=== PATIENT | female | born 1985 | race Caucasian/White ===

== ENCOUNTER 2018-11-05 08:40 | Inpatient (IN) | payer OTHER ==
[2018-11-05 09:34] VITALS: BMI 21.6
--- NOTE | 2018-11-05 10:21 | HP ---
COWS - Scale Resting Pulse: 0= [place] 80 or Below Sweatin= Chills/Flushing Restless Observation: 1= Difficult to Sit Still Pupil Size: 1= Pupils >than Normal Bone or Joint Aches: 2= Severe Diffuse Aches Runny Nose/ Eye Tearin= Runny Nose/Eyes GI Upset > 30mins: 2= Nausea/Diarrhea Tremor Observation: 2= Slight Tremor Visible Yawning Observation: 1= 1-2x During Session Anxiety or Irritability: 2=Irritable/Anxious Goose Flesh Skin: 0=Smooth Skin COWS Score: 14 CIWA Score - Admission Criteria OASAS Guidelines: Admission for Medically Managed Detox: Requires at least one of the followin. CIWA greater than 12 2. Seizures within the past 24 hours 3. Delirium tremens within the past 24 hours 4. Hallucinations within the past 24 hours 5. Acute intervention needed for co occurring medical disorder 6. Acute intervention needed for co occurring psychiatric disorder 7. Severe withdrawal that cannot be handled at a lower level of care (continued vomiting, continued diarrhea, abnormal vital signs) requiring intravenous medication and/or fluids 8. Admission ROS [facility] Chief Complaint: i need help to stop using heroin cocaine and marijuana,stated no methadone program ,left program 2 months 2 moths ago also on prescribed clonazepam and adreral form I stop Allergies/Adverse Reactions: Allergies Allergy/AdvReac Type Severity Reaction Status Date / Time No Known Allergies Allergy Verified 11/05/18 09:26 History of Present Illness: this 33 years old female with heroin,cocaine and marijuana dependence,i stop patient is on clonazepam i mg po tid last filled 10/30/18 for 30 days 90 tablets,addrerall 20 mgs po daily,ambien 10 mg 30 , stated loss medication multiple admissions in detox last detox 05/02 did not recall facility history of hypertension,no medication hepatitis c under the care of medical provider in the [place] weight loss nicotine dependence 5 cigarette /day,would like nicotine gum longest sobriety 6 months bipoloar disorder,ptsd,anxiety,adhd plan for rehab after detox Exam Limitations: No Limitations - Ebola screening Have you traveled outside of the country in the last 21 days: No Have you had contact with anyone from an Ebola affected area: No Do you have a fever: No - Review of Systems Constitutional: Chills, Loss of Appetite, Malaise, Night Sweats, Changes in sleep, Weakness, Unintentional Wgt. Loss EENT: reports: Tearing, Nose Congestion Respiratory: reports: No Symptoms reported Cardiac: reports: No Symptoms Reported GI: reports: Diarrhea, Nausea, Poor Appetite, Abdominal cramping : reports: No Symptoms Reported Musculoskeletal: reports: Back Pain, Joint Pain, Muscle Pain, Joint Stiffness Integumentary: reports: Dryness Neuro: reports: Headache, Tremors Endocrine: reports: No Symptoms Reported Hematology: reports: No Symptoms Reported Psychiatric: reports: No Sypmtoms Reported, Judgement Intact, Mood/Affect Appropiate, Orientated x3, other (bipolar disorder,ptsd,adhd,insomnia) Other Systems: Reviewed and Negative Patient History - Patient Medical History Hx Anemia: No Hx Asthma: No Hx Chronic Obstructive Pulmonary Disease (COPD): No Hx Cancer: No Hx Cardiac Disorders: No Hx Congestive Heart Failure: No Hx Hypertension: Yes (nop med) Hx Hypercholesterolemia: No Hx Pacemaker: No HX Cerebrovascular Accident: No Hx Seizures: No Hx Dementia: No Hx Diabetes: No Hx Gastrointestinal Disorders: No Hx Liver Disease: Yes (hepatitis c) Hx Genitourinary Disorders: No Hx Sexually Transmitted Disorders: No Hx Renal Disease (ESRD): No Hx Thyroid Disease: No Hx Human Immunodeficiency Virus (HIV): No (last 10/01 negative) Hx Hepatitis C: Yes (follow up by pmd no treatemnt) Hx Depression: No Hx Suicide Attempt: Yes (miter cutter 2018) Hx Bipolar Disorder: Yes Hx Schizophrenia: No Other Medical History: ptsd,adhd,no suicidal,no homicidal - Patient Surgical History Past Surgical History: No - PPD History Previous Implant?: Yes Documented Results: Negative w/o proof Implanted On Prior R Admission?: No PPD to be Administered?: Yes - Reproductive History Patient is a Female of Child Bearing Age (11 -55 yrs old): Yes Last Menstrual Period: 10/25/17 Patient : No - Smoking Cessation Smoking history: Current every day smoker Have you smoked in the past 12 months: Yes Aproximately how many cigarettes per day: 0 Hx Chewing Tobacco Use: No Initiated information on smoking cessation: Yes 'Breaking Loose' booklet given: 11/05/18 - Substance & Tx. History Hx Alcohol Use: No Hx Substance Use: Yes Substance Use Type: Cocaine, Heroin, Marijuana Hx Substance Use Treatment: Yes (05/02 did not recall facility) - Substances abused Heroin Substance route: Injection Frequency: Daily Amount used: 1 BUNDLE Age of first use: 26 Date of last use: 11/04/18 Cocaine Substance route: Injection Frequency: Daily Amount used: 1 BUNDLE Age of first use: 27 Date of last use: 11/04/18 Marijuana/Hashish Substance route: Smoking Frequency: 1-3 times last 30 days Amount used: 5$ Age of first use: 20 Date of last use: 11/04/18 Non-Rx Methadone Substance route: Oral Frequency: 1-3 times last 30 days Amount used: 10 mgs Age of first use: 25 Date of last use: 11/04/18 Family Disease History - Family Disease History Family Disease History: Other: Mother (alcohol,) Admission Physical Exam [facility] - Vital Signs Vital Signs: Vital Signs - 24 hr 11/05/18 09:27 Temperature 98.5 F Pulse Rate 78 Respiratory 20 Rate Blood Pressure 131/94 - Physical General Appearance: Yes: Moderate Distress, Tremorous, Irritable, Sweating, Anxious HEENTM: Yes: Normal ENT Inspection, Normocephalic, RADHAMES, Pharynx Normal Respiratory: Yes: Lungs Clear, Normal Breath Sounds, No Respiratory Distress Neck: Yes: Within Normal Limits, Supple, Trachea in good position Breast: Yes: Breast Exam Deferred Cardiology: Yes: Within Normal Limits, Regular Rhythm, Regular Rate, S1, S2 Abdominal: Yes: Within Normal Limits, Normal Bowel Sounds, Non Tender, Flat, Soft Genitourinary: Yes: Within Normal Limits Back: Yes: Muscle Spasm Musculoskeletal: Yes: full range of Motion, Back pain, Muscle Pain Extremities: Yes: Tremors Neurological: Yes: manager diesel II-XII NML intact, Fully Oriented, Alert, Motor Strength 5/5 Integumentary: Yes: Dry, Track Odonnell Lymphatic: Yes: Within Normal Limits - Diagnostic (1) Opioid dependence with withdrawal Current Visit: Yes Status: Acute (2) Benzodiazepine dependence Current Visit: Yes Status: Acute (3) Weight loss Current Visit: Yes Status: Acute (4) Nicotine dependence Current Visit: Yes Status: Acute (5) IVDU (intravenous drug user) Current Visit: Yes Status: Acute (6) Bipolar disorder Current Visit: Yes Status: Acute (7) PTSD (post-traumatic stress disorder) Current Visit: Yes Status: Acute (8) Insomnia Current Visit: Yes Status: Acute (9) ADHD Current Visit: Yes Status: Acute Cleared for Admission [facility] - Detox or Rehab [facility] Level of Care: Medically Managed Detox Regimen/Protocol: Methadone Breathalyzer - Breathalyzer Breathalyzer: 0 Urine Drug Screen - Test Device Lot number: [id number] Expiration date: 07/13/20 - Control Is test valid?: Yes - Results Drug screen NEGATIVE: No Urine drug screen results: THC-Marijuana, RICKIE-Cocaine, MET-Methamphetamine, AMP- Amphetamines, FEN-Fentanyl, MOP-Opiates, MTD-Methadone Inpatient Rehab Admission - Rehab Decision to Admit Inpatient rehab admission?: No
[2018-11-05] MEDS ORDERED: cloNIDine HCL 0.1 MG TABLET PO PRN (10:56)
[2018-11-05] MEDS ORDERED: METHADONE HCL 10 MG TABLET (FOR DETOX USE ONLY) PO ONE ×2 (10:57→23:00)
[2018-11-05] MEDS ORDERED: MAG HYDROX/AL HYDROX/SIMETH 30 ML UNIT-DOSE CUP PO PRN (11:02)
[2018-11-05] MEDS ORDERED: IBUPROFEN 400 MG TABLET (FP) PO PRN (11:02)
[2018-11-05] MEDS ORDERED: METHOCARBAMOL 500 MG TABLET PO PRN (11:02)
[2018-11-05] MEDS ORDERED: MENTHOL/PHENOL 1 EACH UD MM PRN (11:02)
[2018-11-05] MEDS ORDERED: ACETAMINOPHEN 325 MG TABLET (FP) PO PRN ×2 (11:02)
[2018-11-05] MEDS ORDERED: MAGNESIUM HYDROX 2400MG/30ML ORAL SUSPENSION 30 ML CUP PO PRN (11:02)
[2018-11-05] MEDS ORDERED: BISMUTH SUBSALICYLATE 524 MG/30 ML UD PO PRN (11:02)
[2018-11-05] MEDS ORDERED: MAGNESIUM CITRATE 300 ML BOTTLE PO PRN (11:02)
[2018-11-05] MEDS: diazePAM 5 MG TABLET PO PRN ×2 (12:29→17:20)
[2018-11-05] MEDS: NICOTINE POLACRILEX 2 MG GUM BUC PRN ×2 (12:31→17:21)
[2018-11-05] MEDS: MELATONIN 5 MG TABLETS PO PRN (22:07)
[2018-11-05] MEDS: THIAMINE HCL 100 MG TABLET (FP) PO SCH (22:07)
[2018-11-06] MEDS: NICOTINE POLACRILEX 2 MG GUM BUC PRN ×4 (07:18→19:42)
[2018-11-06] MEDS: diazePAM 5 MG TABLET PO PRN ×3 (08:59→22:12)
[2018-11-06] MEDS ORDERED: METHADONE HCL 10 MG TABLET (FOR DETOX USE ONLY) PO ONE (10:00)
[2018-11-06 10:22] LABS: HEMATOCRIT 34.7 % (32.4-45.2); HEMOGLOBIN 11.5 GM/dL (10.7-15.3); MCH 28.1 pg (25.7-33.7); MEAN CELL VOLUME 85.1 fl (80-96); MEAN PLT VOLUME 8.4 fl (7.5-11.1); PLATELET COUNT 278 K/MM3 (134-434); RBC 4.08 M/mm3 (3.60-5.2); RDW 14.5 % (11.6-15.6); WHITE BLOOD COUNT 6.7 K/mm3 (4.0-10.0)
[2018-11-06 10:28] LABS: BILIRUBIN,TOTAL 0.5 mg/dL (0.2-1); BLOOD UREA NITROGEN 15.4 mg/dL (7-18); CALCIUM 8.3 mg/dL (8.5-10.1); CREATININE 0.7 mg/dL (0.55-1.3); POTASSIUM 4.4 mmol/L (3.5-5.1); TOT PROT 6.3 g/dl (6.4-8.2)
--- NOTE | 2018-11-06 10:40 | EKG ---
Test Reason : Blood Pressure : / mmHG Vent. Rate : 078 BPM Atrial Rate : 078 BPM P-R Int : 132 ms QRS Dur : 094 ms QT Int : 368 ms P-R-T Axes : 063 073 042 degrees QTc Int : 419 ms NORMAL SINUS RHYTHM WITH SINUS ARRHYTHMIA NORMAL ECG NO PREVIOUS ECGS AVAILABLE Confirmed by VIVEK BRADSHAW MD ([id number]) on 11/06/2018 10:40:16 AM Referred By: Confirmed By:VIVEK BRADSHAW MD
[2018-11-06] MEDS: PRENATAL VITAMINS W/ FOLIC ACID TABLET (FP) PO SCH (10:56)
[2018-11-06] MEDS ORDERED: TRIMETHOBENZAMIDE HCL 200MG/2ML INJ IM PRN (13:20)
--- NOTE | 2018-11-06 13:29 | PN ---
BHS COWS - Scale Resting Pulse: 1= [place] 81-100 Sweatin= Chills/Flushing Restless Observation: 1= Difficult to Sit Still Pupil Size: 0= Normal to Room Light Bone or Joint Aches: 4=Acute Joint/Muscle Pain Runny Nose/ Eye Tearin= None GI Upset > 30mins: 0= None Tremor Observation of Outstretched Hands: 0= None Yawning Observation: 1= 1-2x During Session Anxiety or Irritability: 2=Irritable/Anxious Goose Flesh Skin: 3=Piloerection COWS Score: 13 BHS Progress Note (SOAP) Subjective: Body Aches (Severe), Nausea, Anxious, Interrupted Sleep. Objective: PATIENT A & O X 3, OBSERVED AMBULATING ON UNIT UNASSISTED. IN NO ACUTE DISTRESS. 11/06/18 13:31 Vital Signs Temperature 98.1 F 11/06/18 13:23 Pulse Rate 84 11/06/18 13:23 Respiratory Rate 16 11/06/18 13:23 Blood Pressure 119/72 11/06/18 13:23 O2 Sat by Pulse Oximetry (%) Laboratory Tests 11/06/18 11/06/18 11/06/18 07:00 07:00 07:00 WBC 6.7 RBC 4.08 Hgb 11.5 Hct 34.7 MCV 85.1 MCH 28.1 MCHC 33.0 RDW 14.5 Plt Count 278 MPV 8.4 Sodium 143 Potassium 4.4 Chloride 110 H Carbon Dioxide 28 Anion Gap 5 L BUN 15.4 Creatinine 0.7 Est GFR (CKD-EPI)AfAm 131.94 Est GFR (CKD-EPI)NonAf 113.84 Random Glucose 77 Calcium 8.3 L Total Bilirubin 0.5 AST 39 H ALT 79 H Alkaline Phosphatase 83 Total Protein 6.3 L Albumin 3.0 L RPR Titer Nonreactive LABS NOTED. 11/06/18 13:32 Assessment: 11/06/18 13:31 WITHDRAWAL SYMPTOMS. Plan: CONTINUE DETOX. INCREASE DAILY PO WATER INTAKE. PRN TIGAN IM FOR NAUSEA /VOMITING.
--- NOTE | 2018-11-06 14:52 | CONSULT ---
[facility] Psychiatric Consult - Data Date of interview: 11/06/18 Admission source: [facility] Identifying data: First admission to [facility] for this 33 y/o female self-referred for detoxification (heroin, cocaine, cannabis). Interviewed at [address] [place] [address] with female registered nursing professor, Pamella Mayers, in attendance. Patient is single, a mother of two (children now in foster care), homeless, unemployed and deprived of any source of income. Substance Abuse History: Discussed in this interview. Details in current [facility] report as follows : Smoking history: Current every day smoker. Have you smoked in the past 12 months: Yes. Aproximately how many cigarettes per day: 0. Hx Chewing Tobacco Use: No. Initiated information on smoking cessation: Yes. ' Breaking Loose' booklet given: 11/05/18. - Substance & Tx. History. Hx Alcohol Use: No. Hx Substance Use: Yes. Substance Use Type: Cocaine, Heroin, Marijuana. Hx Substance Use Treatment: Yes (05/02 did not recall facility). - Substances abused. Heroin. Substance route: Injection. Frequency: Daily. Amount used: 1 BUNDLE. Age of first use: 26. Date of last use: 11/04/18. Cocaine. Substance route: Injection. Frequency: Daily. Amount used: 1 BUNDLE. Age of first use: 27. Date of last use: 11/04/18. Marijuana/ Hashish. Substance route: Smoking. Frequency: 1-3 times last 30 days. Amount used: 5$. Age of first use: 20. Date of last use: 11/04/18. Non-Rx Methadone. Substance route: Oral. Frequency: 1-3 times last 30 days. Amount used: 10 mgs. Age of first use: 25. Date of last use: 11/04/18 Medical History: Remarkable for self-report of weight loss, hepatitis C and hypertension. Psychiatric History: Patient endorses a history of two psychiatric hospitalizations at facilities in [facility] (names not recalled). Reportedly diagnosed with Bipolar Disorder, ADHD and PTSD. Ms Durant states that she sees a psychiatrist, Dr Plaza, at [facility] in the [place]. Managed with a regimen of clonazepam, adderall and zolpidem (no recall of exact doses) in addition to methadone maintenance (reduced to 30 mg/day). Patient denies history of suicide attempts. Physical/Sexual Abuse/Trauma History: Heavy stressors : homelessness, lack of vocational skills, chronic unemployment, no family support, loss of custody of children and addictions. Additional Comment: Urine drug screen results: THC-Marijuana, RICKIE-Cocaine, MET- Methamphetamine, AMP-Amphetamines, FEN-Fentanyl, MOP-Opiates, MTD-Methadone. Noted. Mental Status Exam - Mental Status Exam Alert and Oriented to: Time, Place, Person Cognitive Function: Grossly Intact Patient Appearance: Unkempt, Disheveled (thin habitus, missing teeth, poor oral hygiene) Mood: Hostile (initially hostile), Nervous, Withdrawn, Anxious, Irritable Affect: Mood Congruent, Labile Patient Behavior: Fatigued, Impulsive (manipulative) Speech Pattern: Clear, Appropriate Voice Loudness: Normal Thought Process: Intact, Goal Oriented Thought Disorder: Not Present Hallucinations: Denies Suicidal Ideation: Denies Homicidal Ideation: Denies Insight/Judgement: Poor Sleep: Poorly, Difficulty falling asleep Appetite: Poor, Weight loss Gait/Station: Normal Psychiatric Findings - Problem List ([place] 1, 2,3) (1) Opioid dependence on agonist therapy Current Visit: Yes Status: Chronic (2) Cocaine use disorder Current Visit: Yes Status: Chronic (3) Cannabis abuse Current Visit: Yes Status: Chronic (4) Nicotine dependence Current Visit: Yes Status: Chronic (5) ADHD (attention deficit hyperactivity disorder) Current Visit: Yes Status: Chronic Comment: As per history. On adderall. (6) Substance induced mood disorder Current Visit: Yes Status: Chronic (7) History of bipolar disorder Current Visit: Yes Status: Chronic (8) Insomnia Current Visit: Yes Status: Chronic - Initial Treatment Plan Initial Treatment Plan: Psychoeducation. Sleep hygiene. Detoxification. NA meetings. Support. Relapse prevention : discussed with patient. Insomnia is addressed with melatonin at bedtime. Rehabilitation treatment recommended after completion of detoxification protocol. Patient agrees with this plan of care. Observation.
[2018-11-06] MEDS: THIAMINE HCL 100 MG TABLET (FP) PO SCH (22:09)
[2018-11-06] MEDS: MELATONIN 5 MG TABLETS PO PRN (22:10)
[2018-11-07] MEDS: NICOTINE POLACRILEX 2 MG GUM BUC PRN ×3 (08:14→19:11)
[2018-11-07] MEDS: diazePAM 5 MG TABLET PO PRN ×3 (08:49→19:11)
[2018-11-07] MEDS ORDERED: METHADONE HCL 10 MG TABLET (FOR DETOX USE ONLY) PO ONE (10:00)
[2018-11-07] MEDS: PRENATAL VITAMINS W/ FOLIC ACID TABLET (FP) PO SCH (10:07)
[2018-11-07] MEDS: CYCLOBENZAPRINE HCL 10 MG TABLET (FP) PO PRN ×2 (11:11→22:09)
[2018-11-07] MEDS: hydrOXYzine PAMOATE 25 MG CAPSULE (FP) PO PRN ×2 (11:11→22:10)
[2018-11-07] MEDS ORDERED: PROCHLORPERAZINE MALEATE 5 MG TABLET PO PRN (11:43)
--- NOTE | 2018-11-07 15:47 | PN ---
SHASHANK Progress Note Note: Psychiatry Attending's note (follow-up) : Patient seen today at the request of medical ORTHOTIC TECHNICIAN Michael. Issue : insomnia. Interviewed in the presence of medical students. Gave verbal permission for the participation of students. Different medications reviewed. Patient agrees to take mirtazapine. Side effects/benefits discussed. Remeron 7.5 mg po hs. Ordered. Patient agrees. Verbal consent granted to
--- NOTE | 2018-11-07 15:51 | PN ---
BHS COWS - Scale Resting Pulse: 2= [place] 101-120 Sweatin= Chills/Flushing Restless Observation: 1= Difficult to Sit Still Pupil Size: 0= Normal to Room Light Bone or Joint Aches: 2= Severe Diffuse Aches Runny Nose/ Eye Tearin= None GI Upset > 30mins: 2= Nausea/Diarrhea Tremor Observation of Outstretched Hands: 0= None Yawning Observation: 1= 1-2x During Session Anxiety or Irritability: 4=Extreme Anxiety Goose Flesh Skin: 0=Smooth Skin COWS Score: 13 BHS Progress Note (SOAP) Subjective: Body Aches, Anxious, Nausea, Constipation. Objective: PATIENT A & O X 2 (UNCERTAIN ABOUT CURRENT DAY / DATE). PATIENT OBSERVED AMBULATING ON UNIT UNASSISTED. IN NO ACUTE DISTRESS. 11/07/18 15:49 Vital Signs Temperature 98.3 F 11/07/18 13:34 Pulse Rate 85 11/07/18 13:34 Respiratory Rate 18 11/07/18 13:34 Blood Pressure 109/75 11/07/18 13:34 O2 Sat by Pulse Oximetry (%) Laboratory Tests 11/05/18 11/06/18 11/06/18 10:27 07:00 07:00 WBC 6.7 RBC 4.08 Hgb 11.5 Hct 34.7 MCV 85.1 MCH 28.1 MCHC 33.0 RDW 14.5 Plt Count 278 MPV 8.4 Sodium 143 Potassium 4.4 Chloride 110 H Carbon Dioxide 28 Anion Gap 5 L BUN 15.4 Creatinine 0.7 Est GFR (CKD-EPI)AfAm 131.94 Est GFR (CKD-EPI)NonAf 113.84 Random Glucose 77 Calcium 8.3 L Total Bilirubin 0.5 AST 39 H ALT 79 H Alkaline Phosphatase 83 Total Protein 6.3 L Albumin 3.0 L POC Urine HCG, Qual Negative RPR Titer 11/06/18 07:00 WBC RBC Hgb Hct MCV MCH MCHC RDW Plt Count MPV Sodium Potassium Chloride Carbon Dioxide Anion Gap BUN Creatinine Est GFR (CKD-EPI)AfAm Est GFR (CKD-EPI)NonAf Random Glucose Calcium Total Bilirubin AST ALT Alkaline Phosphatase Total Protein Albumin POC Urine HCG, Qual RPR Titer Nonreactive LABS NOTED. Assessment: 11/07/18 15:49 WITHDRAWAL SYMPTOMS. Plan: CONTINUE DETOX. PRN COMPAZINE PO FOR NAUSEA. PATIENT REPORTS THAT PRN ROBAXIN PO CAUSED HER TO FEEL 'SICK.' WILL CHANGE TO PRN FLEXERIL PO FOR BODY ACHES /MUSCLE SPASMS.
[2018-11-07 18:19] LABS: EPI CELLS 4.8 /HPF (0-5/HPF); HYALINE CASTS 2 /lpf (0-8); URINE APPEARANCE CLEAR; URINE BACTERIA 39.6 /hpf (NEGATIVE); URINE BILIRUBIN NEGATIVE (NEGATIVE); URINE COLOR YELLOW; URINE GLUCOSE (UA) NEGATIVE (NEGATIVE); URINE KETONE NEGATIVE (NEGATIVE); URINE LEUK ESTERASE 1+ (NEGATIVE); URINE NITRITE NEGATIVE (NEGATIVE); URINE PROTEIN NEGATIVE (NEGATIVE); URINE RBC 1 /hpf (0-4); URINE UROBILINOGEN 0.2 mg/dL (0.2-1.0); URINE WBC 6 /hpf (0-5)
[2018-11-07] MEDS ORDERED: MIRTAZAPINE 15 MG TABLET (FP) PO SCH (22:00)
[2018-11-07] MEDS: THIAMINE HCL 100 MG TABLET (FP) PO SCH (22:09)
[2018-11-07] MEDS: MELATONIN 5 MG TABLETS PO PRN (22:11)
[2018-11-08] MEDS: diazePAM 5 MG TABLET PO PRN ×2 (06:38→10:45)
[2018-11-08] MEDS ORDERED: METHADONE HCL 5 MG TABLET (FOR DETOX USE ONLY) ONE (08:17)
[2018-11-08] MEDS ORDERED: METHADONE HCL 10 MG TABLET (FOR DETOX USE ONLY) ONE (08:17)
[2018-11-08] MEDS: PRENATAL VITAMINS W/ FOLIC ACID TABLET (FP) PO SCH (09:14)
[2018-11-08] MEDS: NICOTINE POLACRILEX 2 MG GUM BUC PRN ×3 (09:16→22:19)
[2018-11-08] MEDS ORDERED: METHADONE HCL 10 MG TABLET (FOR DETOX USE ONLY) PO ONE (10:00)
[2018-11-08] MEDS ORDERED: METHADONE (DETOX) 10 MG, METHADONE (DETOX) 5 MG PO ONE (10:00)
[2018-11-08] MEDS: CYCLOBENZAPRINE HCL 10 MG TABLET (FP) PO PRN ×2 (10:45→22:17)
--- NOTE | 2018-11-08 12:25 | PN ---
BHS COWS - Scale Resting Pulse: 1= [place] 81-100 Sweatin= Chills/Flushing Restless Observation: 1= Difficult to Sit Still Pupil Size: 0= Normal to Room Light Bone or Joint Aches: 1= Mild Discomfort Runny Nose/ Eye Tearin= Runny Nose/Eyes GI Upset > 30mins: 2= Nausea/Diarrhea Tremor Observation of Outstretched Hands: 2= Slight Tremor Visible Yawning Observation: 1= 1-2x During Session Anxiety or Irritability: 2=Irritable/Anxious Goose Flesh Skin: 3=Piloerection COWS Score: 16 S Progress Note (SOAP) Subjective: Pt states she feels like she is in withdrawal, on methadone 15mg today. States would like to restart the methadone program she left a few months ago and also would like to go to rehab- does not like Suboxone. c/o itchy bug bite on L forearm O: L forearm- less than a dime sized area of redness with a yellowish punctate head Laboratory Tests 11/05/18 11/06/18 11/06/18 10:27 07:00 07:00 WBC 6.7 RBC 4.08 Hgb 11.5 Hct 34.7 MCV 85.1 MCH 28.1 MCHC 33.0 RDW 14.5 Plt Count 278 MPV 8.4 Sodium 143 Potassium 4.4 Chloride 110 H Carbon Dioxide 28 Anion Gap 5 L BUN 15.4 Creatinine 0.7 Est GFR (CKD-EPI)AfAm 131.94 Est GFR (CKD-EPI)NonAf 113.84 Random Glucose 77 Calcium 8.3 L Total Bilirubin 0.5 AST 39 H ALT 79 H Alkaline Phosphatase 83 Total Protein 6.3 L Albumin 3.0 L Urine Color Urine Appearance Urine pH Ur Specific [place] Urine Protein Urine Glucose (UA) Urine Ketones Urine Blood Urine Nitrite Urine Bilirubin Urine Urobilinogen Ur Leukocyte Esterase Urine WBC (Auto) Urine RBC (Auto) Urine Casts (Auto) U Epithel Cells (Auto) Urine Crystals (Auto) Urine Bacteria (Auto) POC Urine HCG, Qual Negative RPR Titer HIV 1&2 Antibody Screen HIV P24 Antigen 11/06/18 11/07/18 11/07/18 07:00 12:00 14:05 WBC RBC Hgb Hct MCV MCH MCHC RDW Plt Count MPV Sodium Potassium Chloride Carbon Dioxide Anion Gap BUN Creatinine Est GFR (CKD-EPI)AfAm Est GFR (CKD-EPI)NonAf Random Glucose Calcium Total Bilirubin AST ALT Alkaline Phosphatase Total Protein Albumin Urine Color Yellow Urine Appearance Clear Urine pH 5.0 Ur Specific [place] 1.023 Urine Protein Negative Urine Glucose (UA) Negative Urine Ketones Negative Urine Blood Negative Urine Nitrite Negative Urine Bilirubin Negative Urine Urobilinogen 0.2 Ur Leukocyte Esterase 1+ H Urine WBC (Auto) 6 Urine RBC (Auto) 1 Urine Casts (Auto) 2 U Epithel Cells (Auto) 4.8 Urine Crystals (Auto) Urine Bacteria (Auto) 39.6 POC Urine HCG, Qual RPR Titer Nonreactive HIV 1&2 Antibody Screen Negative HIV P24 Antigen Negative mildly increased liver enzymes, low protein/albumin a/p: OUD- continue methadone detox, added vistaril and clonidine for Sx relief. Pt to consider lube technician MAT vs rehab to d/w counselor L foream: c/w insect bite-warm compresses for now, monitor and consider other treatment options if needed
[2018-11-08] MEDS: hydrOXYzine PAMOATE 25 MG CAPSULE (FP) PO PRN (13:20)
[2018-11-08] MEDS: cloNIDine HCL 0.1 MG TABLET PO PRN (13:20)
--- NOTE | 2018-11-08 14:24 | PN ---
SHASHANK Progress Note Note: Psychiatry Attending's note (follow-up) : Approached by patient. Issues : insomnia and anxiety. Mirtazapine ineffective at 7.5 mg/hs. Ms Durant is now requesting trial of seroquel. Side effects/benefits reviewed with the patient. Informed of risk of metabolic syndrome. Patient agrees. Interventions : Seroquel 100 mg po hs Mirtazapine 15 mg po hs (increased dose) Verbal consent granted to MD. Will follow response.
[2018-11-08] MEDS: MIRTAZAPINE 15 MG TABLET (FP) PO SCH (22:17)
[2018-11-08] MEDS: QUEtiapine FUMARATE 100 MG TABLET (FP) PO SCH (22:17)
[2018-11-08] MEDS: THIAMINE HCL 100 MG TABLET (FP) PO SCH (22:17)
[2018-11-09] MEDS ORDERED: METHADONE HCL 5 MG TABLET (FOR DETOX USE ONLY) PO ONE (06:00)
[2018-11-09] MEDS ORDERED: METHADONE HCL 10 MG TABLET (FOR DETOX USE ONLY) PO ONE (10:00)
[2018-11-09] MEDS: PRENATAL VITAMINS W/ FOLIC ACID TABLET (FP) PO SCH (10:06)
[2018-11-09] MEDS: NICOTINE POLACRILEX 2 MG GUM BUC PRN ×3 (10:07→22:35)
[2018-11-09] MEDS: CYCLOBENZAPRINE HCL 10 MG TABLET (FP) PO PRN ×2 (10:09→18:46)
[2018-11-09] MEDS ORDERED: diphenhydrAMINE HCL 25 MG CAPSULE (FP) PO PRN (13:40)
--- NOTE | 2018-11-09 13:44 | PN ---
BHS COWS - Scale Resting Pulse: 1= [place] 81-100 Sweatin= Chills/Flushing Restless Observation: 1= Difficult to Sit Still Pupil Size: 0= Normal to Room Light Bone or Joint Aches: 4=Acute Joint/Muscle Pain Runny Nose/ Eye Tearin= None GI Upset > 30mins: 0= None Tremor Observation of Outstretched Hands: 0= None Yawning Observation: 1= 1-2x During Session Anxiety or Irritability: 4=Extreme Anxiety Goose Flesh Skin: 0=Smooth Skin COWS Score: 12 BHS Progress Note (SOAP) Subjective: Anxious, Restless, Body Aches (Severe). Objective: PATIENT A & O X 3, OBSERVED AMBULATING ON UNIT UNASSISTED. IN NO ACUTE DISTRESS. 11/09/18 13:44 Vital Signs Temperature 98.0 F 11/09/18 13:12 Pulse Rate 90 11/09/18 13:12 Respiratory Rate 18 11/09/18 13:12 Blood Pressure 113/73 11/09/18 13:12 O2 Sat by Pulse Oximetry (%) Laboratory Tests 11/05/18 11/06/18 11/06/18 10:27 07:00 07:00 WBC 6.7 RBC 4.08 Hgb 11.5 Hct 34.7 MCV 85.1 MCH 28.1 MCHC 33.0 RDW 14.5 Plt Count 278 MPV 8.4 Sodium 143 Potassium 4.4 Chloride 110 H Carbon Dioxide 28 Anion Gap 5 L BUN 15.4 Creatinine 0.7 Est GFR (CKD-EPI)AfAm 131.94 Est GFR (CKD-EPI)NonAf 113.84 Random Glucose 77 Calcium 8.3 L Total Bilirubin 0.5 AST 39 H ALT 79 H Alkaline Phosphatase 83 Total Protein 6.3 L Albumin 3.0 L Urine Color Urine Appearance Urine pH Ur Specific [place] Urine Protein Urine Glucose (UA) Urine Ketones Urine Blood Urine Nitrite Urine Bilirubin Urine Urobilinogen Ur Leukocyte Esterase Urine WBC (Auto) Urine RBC (Auto) Urine Casts (Auto) U Epithel Cells (Auto) Urine Crystals (Auto) Urine Bacteria (Auto) POC Urine HCG, Qual Negative RPR Titer HIV 1&2 Antibody Screen HIV P24 Antigen 11/06/18 11/07/18 11/07/18 07:00 12:00 14:05 WBC RBC Hgb Hct MCV MCH MCHC RDW Plt Count MPV Sodium Potassium Chloride Carbon Dioxide Anion Gap BUN Creatinine Est GFR (CKD-EPI)AfAm Est GFR (CKD-EPI)NonAf Random Glucose Calcium Total Bilirubin AST ALT Alkaline Phosphatase Total Protein Albumin Urine Color Yellow Urine Appearance Clear Urine pH 5.0 Ur Specific [place] 1.023 Urine Protein Negative Urine Glucose (UA) Negative Urine Ketones Negative Urine Blood Negative Urine Nitrite Negative Urine Bilirubin Negative Urine Urobilinogen 0.2 Ur Leukocyte Esterase 1+ H Urine WBC (Auto) 6 Urine RBC (Auto) 1 Urine Casts (Auto) 2 U Epithel Cells (Auto) 4.8 Urine Crystals (Auto) Urine Bacteria (Auto) 39.6 POC Urine HCG, Qual RPR Titer Nonreactive HIV 1&2 Antibody Screen Negative HIV P24 Antigen Negative LABS NOTED. Assessment: 11/09/18 13:44 WITHDRAWAL SYMPTOMS. Plan: CONTINUE DETOX. SMALL ERYTHEMATOUS BUMP NOTED ON PATIENT'S RIGHT FOREARM. MILD SWELLING NOTED IN AREA IMMEDIATELY SURROUNDING SITE. PATIENT REPORTS SITE TO FEEL ITCHY. SITE APPEARS TO BE SOMEWHAT LESS SWOLLEN AND ERYTHEMATOUS THAN YESTERDAY. PATIENT NOTES THAT BUMP FIRST APPEARED 3-4 DAYS AGO. POSSIBLE BUG BITE? PRN BENADRYL PO ORDERED FOR ITCHING. PATIENT ADVISED TO ALLOW LESION TO EXPRESS ITSELF FOR TIME BEING AND TO TRY TO AVOID SCRATCHING AFFECTED MUCH POSSIBLE. PATIENT VERBALIZED UNDERSTANDING OF RECOMMENDATION. CLONIDINE, 0.1 MG PO X 1 DOSE ORDERED FOR LINGERING WITHDRAWAL SYMPTOMS. PATIENT SCHEDULED FOR D/C TOMORROW.
[2018-11-09] MEDS ORDERED: cloNIDine HCL 0.1 MG TABLET PO ONE (14:00)
[2018-11-09] MEDS: hydrOXYzine PAMOATE 25 MG CAPSULE (FP) PO PRN (18:46)
[2018-11-09] MEDS: cloNIDine HCL 0.1 MG TABLET PO PRN (20:37)
[2018-11-09] MEDS: THIAMINE HCL 100 MG TABLET (FP) PO SCH (22:33)
[2018-11-09] MEDS: QUEtiapine FUMARATE 100 MG TABLET (FP) PO SCH (22:33)
[2018-11-09] MEDS: MIRTAZAPINE 15 MG TABLET (FP) PO SCH (22:33)
[2018-11-09 22:59] VITALS: BP 111/68; PULSE 88; TEMP 98.5
[2018-11-10] MEDS: NICOTINE POLACRILEX 2 MG GUM BUC PRN (05:33)
[2018-11-10] MEDS: hydrOXYzine PAMOATE 25 MG CAPSULE (FP) PO PRN (05:33)
[2018-11-10] MEDS: cloNIDine HCL 0.1 MG TABLET PO PRN (05:33)
[2018-11-10] MEDS ORDERED: METHADONE HCL 5 MG TABLET (FOR DETOX USE ONLY) PO ONE (06:00)
--- NOTE | 2018-11-10 09:35 | PN ---
BHS COWS - Scale Resting Pulse: 0= [place] 80 or Below Sweatin= No chills or Flushing Restless Observation: 0= Sits Still Pupil Size: 0= Normal to Room Light Bone or Joint Aches: 1= Mild Discomfort Runny Nose/ Eye Tearin= None GI Upset > 30mins: 0= None Tremor Observation of Outstretched Hands: 0= None Yawning Observation: 0= None Anxiety or Irritability: 1=Feels Anxious/Irritable Goose Flesh Skin: 0=Smooth Skin COWS Score: 2 BHS Progress Note (SOAP) Subjective: alert,no complaint Objective: 11/10/18 09:34 Vital Signs Temperature 98.5 F 11/09/18 22:00 Pulse Rate 88 11/09/18 22:00 Respiratory Rate 18 11/10/18 03:30 Blood Pressure 111/68 11/09/18 22:00 O2 Sat by Pulse Oximetry (%) Assessment: 11/10/18 09:34 detox completed no withdrawal symptom Plan: discharge today,follow up with taylor patel
== END 2018-11-10 06:51 | disposition home or self-care (01) | DRG 773 ==
LOC: YASAS 08:40 → Y3N 10:58
PROVIDERS: ADMIT Surgery; ATTEND Surgery
PROC: HZ2ZZZZ Detoxification Services for Substance Abuse Treatment (ICD-10-PCS; principal; 2018-11-05)
DX: F11.23 Opioid dependence with withdrawal (principal); F13.20 Sedative, hypnotic or anxiolytic dependence, uncomplicated; F14.10 Cocaine abuse, uncomplicated; F12.10 Cannabis abuse, uncomplicated; F17.210 Nicotine dependence, cigarettes, uncomplicated; F31.9 Bipolar disorder, unspecified; F19.24 Other psychoactive substance dependence with psychoactive substance-induced mood disorder; F90.9 Attention-deficit hyperactivity disorder, unspecified type; F43.10 Post-traumatic stress disorder, unspecified; G47.00 Insomnia, unspecified; B18.2 Chronic viral hepatitis C; R63.4 Abnormal weight loss; Z68.21 Body mass index [BMI] 21.0-21.9, adult; Z91.5 Personal history of self-harm
CPT/HCPCS: 36415; 80053; 81003; 81025; 85027; 86593; 87389; 93005; 93010; J0735

== ENCOUNTER 2019-01-24 09:48 | Inpatient (IN) | payer OTHER | END 2019-01-29 14:13 | disposition other institution (70) | LOC: YASAS 09:48 → Y3N 11:25 ==

== ENCOUNTER 2019-01-29 14:10 | Inpatient (IN) | payer OTHER ==
--- NOTE | 2019-01-29 13:21 | HP ---
[facility] Rehab Assess/Revision - Admission History Admitted to Rehab from: [facility] Date of Admission to Rehab: 01/29/19 - Findings Detox History & Physical reviewed: Yes Concur with findings: Yes Comments/Additional Findings: transferred from detox to rehab admission as per protocol Inpatient Rehab Admission - Rehab Decision to Admit Inpatient rehab admission?: Yes - Initial Determination Are CD services needed?: Yes Free of communicable disease: Yes Not in need of hospitalization: Yes - Rehab Admission Criteria Previous failed treatment: Yes Poor recovery environment: Yes Comorbidities: Yes Lacks judgement: Yes Patient is meeting Inpatient Rehab admission criteria:: Yes
[~2019-01-29 14:10] MED LIST: ACETAMINOPHEN 325 MG TABLET (FP) PO PRN; CYCLOBENZAPRINE HCL 10 MG TABLET (FP) PO PRN; LOPERAMIDE HCL 2 MG CAPSULE PO PRN; MAGNESIUM CITRATE 300 ML BOTTLE PO PRN; MENTHOL/PHENOL 1 EACH UD MM PRN; NICOTINE 7 MG/24 HOURS TOPICAL PATCH TD PRN; P-EPHED 60MG/TRIPROLIDI 2.5MG TABLET PO PRN; guaiFENesin 200 MG/10 ML 10 ML UNIT-DOSE CUPS PO PRN
[2019-01-29] MEDS: NICOTINE POLACRILEX 2 MG GUM BC PRN ×2 (17:29→21:21)
[2019-01-29] MEDS: IBUPROFEN 400 MG TABLET (FP) PO PRN (19:15)
[2019-01-29] MEDS ORDERED: PT OWN MED DRAWER 7, Y5N ONE (19:43)
[2019-01-29] MEDS: THIAMINE HCL 100 MG TABLET (FP) PO SCH (21:20)
[2019-01-29] MEDS: CEPHALEXIN MONOHYDRATE 500 MG CAPSULE (UD) PO SCH (21:20)
[2019-01-29] MEDS: MELATONIN 5 MG TABLETS PO PRN (21:22)
[2019-01-29] MEDS: BACITRACIN 0.9 GM PACKET TP SCH (22:18)
[2019-01-30] MEDS ORDERED: CYCLOBENZAPRINE HCL 5 MG TABLET PO PRN (01:39)
[2019-01-30] MEDS: BACITRACIN 0.9 GM PACKET TP SCH (06:40)
[2019-01-30] MEDS: QUEtiapine FUMARATE 100 MG TABLET (FP) PO SCH (09:18)
[2019-01-30] MEDS: PRENATAL VITAMINS W/ FOLIC ACID TABLET (FP) PO SCH (09:18)
[2019-01-30] MEDS: CEPHALEXIN MONOHYDRATE 500 MG CAPSULE (UD) PO SCH ×2 (09:19→21:09)
[2019-01-30] MEDS: NICOTINE POLACRILEX 2 MG GUM BC PRN ×5 (09:20→21:11)
[2019-01-30] MEDS: DEXTROAMPHETAMINE/AMPHETAMINE 10 MG CAP.ER.24H PO SCH (10:12)
[2019-01-30] MEDS: IBUPROFEN 400 MG TABLET (FP) PO PRN ×2 (12:37→19:39)
[2019-01-30] MEDS ORDERED: PT OWN MED DRAWER 7, Y5N ONE ×3 (13:23→19:06)
[2019-01-30] MEDS: CYCLOBENZAPRINE HCL 10 MG TABLET (FP) PO PRN ×2 (14:10→17:42)
[2019-01-30] MEDS: BACITRACIN 15 GM TUBE TOPICAL OINTMENT TP SCH ×2 (15:00→21:10)
[2019-01-30] MEDS: THIAMINE HCL 100 MG TABLET (FP) PO SCH (21:09)
[2019-01-30] MEDS: MELATONIN 5 MG TABLETS PO PRN (21:10)
[2019-01-31] MEDS: BACITRACIN 0.9 GM PACKET TP SCH (00:16)
[2019-01-31] MEDS: BACITRACIN 15 GM TUBE TOPICAL OINTMENT TP SCH ×3 (06:46→21:16)
[2019-01-31] MEDS: NICOTINE POLACRILEX 2 MG GUM BC PRN ×4 (08:34→19:57)
[2019-01-31] MEDS: CYCLOBENZAPRINE HCL 10 MG TABLET (FP) PO PRN ×2 (08:34→17:08)
[2019-01-31] MEDS: CEPHALEXIN MONOHYDRATE 500 MG CAPSULE (UD) PO SCH ×2 (09:51→21:17)
[2019-01-31] MEDS: PRENATAL VITAMINS W/ FOLIC ACID TABLET (FP) PO SCH (09:51)
[2019-01-31] MEDS: QUEtiapine FUMARATE 100 MG TABLET (FP) PO SCH (09:52)
[2019-01-31] MEDS: DEXTROAMPHETAMINE/AMPHETAMINE 10 MG CAP.ER.24H PO SCH (09:52)
[2019-01-31] MEDS: hydrOXYzine PAMOATE 50 MG CAPSULE (FP) PO PRN ×3 (13:40→21:17)
[2019-01-31] MEDS ORDERED: PT OWN MED DRAWER 7, Y5N ONE (19:42)
[2019-01-31] MEDS: THIAMINE HCL 100 MG TABLET (FP) PO SCH (21:17)
[2019-02-01] MEDS: BACITRACIN 15 GM TUBE TOPICAL OINTMENT TP SCH ×3 (06:54→21:15)
--- NOTE | 2019-02-01 09:18 | CONSULT ---
[facility] Psychiatric Consult - Data Date of interview: 02/01/19 Admission source: [facility] Identifying data: Patient is a 33 y/o female, , mother of two (children now in foster care), homeless, unemployed and supported on welfare. This is one of multiple admissions for patient. Patient admitted to for heroin, cocaine, cannabis dependence. Substance Abuse History: Smoking Cessation. Smoking history: Current every day smoker. Have you smoked in the past 12 months: Yes. Aproximately how many cigarettes per day: 0. Hx Chewing Tobacco Use: No. Initiated information on smoking cessation: Yes. 'Breaking Loose' booklet given: 01/24/19. - Substance & Tx. History. Hx Alcohol Use: No. Hx Substance Use: Yes. Substance Use Type : Cocaine, Heroin, Marijuana, Opiates. Hx Substance Use Treatment: Yes ( previous detox). - Substances abused. Heroin. Substance route: Injection. Frequency: Daily. Amount used: 2 BUNDLE. Age of first use: 26. Date of last use: 01/23/19. Cocaine. Substance route: Injection. Frequency: Daily. Amount used: 2 BUNDLE. Age of first use: 27. Date of last use: . Marijuana/Hashish. Substance route: Smoking. Frequency: 1-3 times last 30 days. Amount used: 5$. Age of first use: 20. Date of last use: . Non-Rx Methadone. Substance route: Oral. Frequency: 1-3 times last 30 days. Amount used: 10 mgs. Age of first use: 25. Date of last use: 11/04/18 Medical History: Remarkable for self-report of weight loss, hepatitis C and hypertension. Psychiatric History: Patient's first psychiatric contact was at 14 years of age after her grandparents took her to see a psychiatrist due to her mother's . Patient was provided with psychotherapy and diagnosed with depression and PTSD (reports mother dying in her arms) and ADHD. Ms. Durant reports history of three psychiatric hospitalizations most recently last year at a facility in [place] in [place], [place]. Reports additional diagnosis of Bipolar disorder. Patient is currently provided with outpatient psychiatric care by Dr. Plaza at the [facility] ([facility]) and is prescribed Adderall 30mg ER (# 30 tablets on 11/27/18) + Klonopin 1mg TID ( #90 tablets on 11/27/18) + Ambien 10mg ( 30 tablets on 01/03/19). Patient denies history of suicide attempt. Patient denies auditory/visual hallucinations and paranoid ideation. Physical/Sexual Abuse/Trauma History: Heavy stressors : homelessness, lack of vocational skills, chronic unemployment, no family support, loss of custody of children, addictions and chronic non-adherence to medications. Mental Status Exam - Mental Status Exam Alert and Oriented to: Time, Place, Person Cognitive Function: Good Patient Appearance: Well Groomed Mood: Euthymic Affect: Mood Congruent Patient Behavior: Cooperative Speech Pattern: Appropriate Voice Loudness: Normal Thought Process: Goal Oriented Thought Disorder: Not Present Hallucinations: Denies Suicidal Ideation: Denies Homicidal Ideation: Denies Insight/Judgement: Poor Sleep: Poorly Appetite: Fair Muscle strength/Tone: Normal Gait/Station: Normal Psychiatric Findings - Problem List ([facility] 1, 2,3) (1) Opioid dependence Status: Chronic Qualifiers: Substance use status: uncomplicated Qualified Code(s): F11.20 - Opioid dependence, uncomplicated (2) ADHD (attention deficit hyperactivity disorder) Status: Chronic Comment: As per history. On adderall. (3) Cocaine use disorder Status: Chronic Comment: . (4) History of bipolar disorder Status: Chronic Comment: . (5) PTSD (post-traumatic stress disorder) Status: Chronic Comment: By history. (6) Substance-induced sleep disorder Status: Acute - Initial Treatment Plan Initial Treatment Plan: Psychoeducation provided. Rehab in progress. Will continue seroquel 100mg daily. Will d/c seroquel 50mg HS ER and melatonin 5mg. Will order seroquel 100mg HS and Melatonin 10mg. Benefits and side effects discussed. Verbal consent given.
[2019-02-01] MEDS: DEXTROAMPHETAMINE/AMPHETAMINE 10 MG CAP.ER.24H PO SCH (09:21)
[2019-02-01] MEDS: PRENATAL VITAMINS W/ FOLIC ACID TABLET (FP) PO SCH (09:21)
[2019-02-01] MEDS: CYCLOBENZAPRINE HCL 10 MG TABLET (FP) PO PRN ×2 (09:22→16:42)
[2019-02-01] MEDS: QUEtiapine FUMARATE 100 MG TABLET (FP) PO SCH ×2 (09:22→21:14)
[2019-02-01] MEDS: NICOTINE POLACRILEX 2 MG GUM BC PRN ×4 (09:23→19:17)
[2019-02-01] MEDS: hydrOXYzine PAMOATE 50 MG CAPSULE (FP) PO PRN ×3 (09:23→21:15)
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
[2019-02-01] MEDS ORDERED: DICLOFENAC SODIUM 25 MG TABLET.DR PO ONE (14:15)
[2019-02-01] MEDS ORDERED: SUMAtriptan SUCCINATE 50 MG TABLET PO ONE ×3 (14:30→19:30)
[2019-02-01] MEDS: THIAMINE HCL 100 MG TABLET (FP) PO SCH (21:13)
[2019-02-01] MEDS: MELATONIN 5 MG TABLETS PO PRN (21:15)
[2019-02-02] MEDS ORDERED: PT OWN MED DRAWER 7, Y5N ONE (05:59)
[2019-02-02] MEDS: hydrOXYzine PAMOATE 50 MG CAPSULE (FP) PO PRN ×3 (06:49→18:40)
[2019-02-02] MEDS: BACITRACIN 15 GM TUBE TOPICAL OINTMENT TP SCH ×3 (06:50→22:16)
[2019-02-02] MEDS: QUEtiapine FUMARATE 100 MG TABLET (FP) PO SCH ×2 (09:28→21:21)
[2019-02-02] MEDS: PRENATAL VITAMINS W/ FOLIC ACID TABLET (FP) PO SCH (09:28)
[2019-02-02] MEDS: DEXTROAMPHETAMINE/AMPHETAMINE 10 MG CAP.ER.24H PO SCH (09:28)
[2019-02-02] MEDS: CYCLOBENZAPRINE HCL 10 MG TABLET (FP) PO PRN (09:29)
[2019-02-02] MEDS: NICOTINE POLACRILEX 2 MG GUM BC PRN ×2 (09:30→12:48)
[2019-02-02] MEDS: MAG HYDROX/AL HYDROX/SIMETH 30 ML UNIT-DOSE CUP PO PRN ×2 (14:10→21:27)
[2019-02-02] MEDS ORDERED: ONDANSETRON 8 MG TABLET (FP) PO PRN (14:58)
[2019-02-02] MEDS ORDERED: SUMAtriptan SUCCINATE 25 MG TABLET PO PRN (15:02)
--- NOTE | 2019-02-02 15:10 | PN ---
S Progress Note Note: Pt c/o withdrawal sx of muscle aches, nausea,vomiting, stomach cramps, anxiety. Pt is open to suboxone treatment-hx of Heroin,street methadone,cocaine, marijuana. Pt is s/p detox and admitted to rehab on 01/29/19. Pt will meet with the counselor to arrange for CD aftercare after rehab. Vital Signs - 24 hr 02/02/19 02/02/19 02/02/19 00:30 03:30 07:40 Temperature 98.1 F Pulse Rate 92 H Respiratory 16 16 18 Rate Blood Pressure 123/86 Alert o x 3 Nad Cardiac:s1 s2, rrr Lung:cta,sen. Abdomen:soft,+bs,flat,slight generalized tenderness on palpation. Extremities/Skin:No edema,no cyanosis;Skin intact. COWS score:12 URINE DRUG SCREEN RESULTS Drug Screen Negative No Urine Drug Screen Results AMP-Amphetamines,MTD-Methadone A/P Protracted W/S Muscle aches Nausea/Vomiting Zofran sl 8 mg as directed Suboxone 2 mg/0.1 mg sl now then daily x 3 days for symptom relief Will re-evaluate pt on Tuesday for suboxone-MAT Instructed pt to meet with counselor to arrange for possible CD aftercare to continue suboxone treatment when started.
--- NOTE | 2019-02-02 15:46 | PN ---
[facility] COWS - Scale Resting Pulse: 1= ID 81-100 Sweatin= Chills/Flushing Restless Observation: 1= Difficult to Sit Still Pupil Size: 0= Normal to Room Light Bone or Joint Aches: 4=Acute Joint/Muscle Pain Runny Nose/ Eye Tearin= None GI Upset > 30mins: 3= Vomiting/Diarrhea (n/v) Tremor Observation of Outstretched Hands: 0= None Yawning Observation: 0= None Anxiety or Irritability: 2=Irritable/Anxious Goose Flesh Skin: 0=Smooth Skin COWS Score: 12
[2019-02-02] MEDS ORDERED: BUPRENORPHINE/NALOXONE 2 MG/0.5 MG FILM PACKET SL ONE (16:00)
[2019-02-02] MEDS: THIAMINE HCL 100 MG TABLET (FP) PO SCH (21:21)
[2019-02-02] MEDS: ONDANSETRON *ODT* 4 MG TABLET SL PRN (21:24)
[2019-02-03] MEDS: ONDANSETRON *ODT* 4 MG TABLET SL PRN (06:32)
[2019-02-03] MEDS: MAGNESIUM HYDROX 2400MG/30ML ORAL SUSPENSION 30 ML CUP PO PRN (06:32)
[2019-02-03] MEDS: BACITRACIN 15 GM TUBE TOPICAL OINTMENT TP SCH ×3 (06:53→21:47)
[2019-02-03] MEDS: BUPRENORPHINE/NALOXONE 2 MG/0.5 MG FILM PACKET SL SCH (11:00)
[2019-02-03] MEDS: DEXTROAMPHETAMINE/AMPHETAMINE 10 MG CAP.ER.24H PO SCH (11:00)
[2019-02-03] MEDS: PRENATAL VITAMINS W/ FOLIC ACID TABLET (FP) PO SCH (11:00)
[2019-02-03] MEDS: QUEtiapine FUMARATE 100 MG TABLET (FP) PO SCH ×2 (11:00→21:49)
[2019-02-03] MEDS ORDERED: ONDANSETRON *ODT* 4 MG TABLET SL ONE (11:03)
[2019-02-03] MEDS ORDERED: PT OWN MED DRAWER 7, Y5N ONE ×2 (13:43→21:49)
[2019-02-03] MEDS: IBUPROFEN 400 MG TABLET (FP) PO PRN (13:46)
[2019-02-03] MEDS: THIAMINE HCL 100 MG TABLET (FP) PO SCH ×2 (21:49→22:12)
[2019-02-03] MEDS: hydrOXYzine PAMOATE 50 MG CAPSULE (FP) PO PRN (21:50)
[2019-02-03] MEDS: CYCLOBENZAPRINE HCL 10 MG TABLET (FP) PO PRN (21:50)
[2019-02-04] MEDS: BACITRACIN 15 GM TUBE TOPICAL OINTMENT TP SCH ×3 (06:23→21:38)
[2019-02-04] MEDS: ONDANSETRON *ODT* 4 MG TABLET SL PRN (07:43)
[2019-02-04] MEDS: BUPRENORPHINE/NALOXONE 2 MG/0.5 MG FILM PACKET SL SCH (10:05)
[2019-02-04] MEDS: PRENATAL VITAMINS W/ FOLIC ACID TABLET (FP) PO SCH (10:05)
[2019-02-04] MEDS: DEXTROAMPHETAMINE/AMPHETAMINE 10 MG CAP.ER.24H PO SCH (10:05)
[2019-02-04] MEDS: QUEtiapine FUMARATE 100 MG TABLET (FP) PO SCH ×2 (10:05→21:33)
[2019-02-04] MEDS: CYCLOBENZAPRINE HCL 10 MG TABLET (FP) PO PRN ×2 (11:39→21:33)
[2019-02-04] MEDS: hydrOXYzine PAMOATE 50 MG CAPSULE (FP) PO PRN ×2 (11:39→18:17)
[2019-02-04] MEDS: NICOTINE POLACRILEX 2 MG GUM BC PRN (11:41)
[2019-02-04] MEDS ORDERED: PT OWN MED DRAWER 7, Y5N ONE ×2 (13:34→19:27)
[2019-02-04] MEDS: THIAMINE HCL 100 MG TABLET (FP) PO SCH (21:33)
[2019-02-05] MEDS: BACITRACIN 15 GM TUBE TOPICAL OINTMENT TP SCH (06:41)
[2019-02-05] MEDS ORDERED: PT OWN MED DRAWER 7, Y5N ONE (07:42)
[2019-02-05] MEDS: ONDANSETRON *ODT* 4 MG TABLET SL PRN (07:44)
[2019-02-05] MEDS: MAGNESIUM HYDROX 2400MG/30ML ORAL SUSPENSION 30 ML CUP PO PRN (07:44)
[2019-02-05] MEDS: QUEtiapine FUMARATE 100 MG TABLET (FP) PO SCH ×2 (09:14→22:02)
[2019-02-05] MEDS: PRENATAL VITAMINS W/ FOLIC ACID TABLET (FP) PO SCH (09:14)
[2019-02-05] MEDS: DEXTROAMPHETAMINE/AMPHETAMINE 10 MG CAP.ER.24H PO SCH (09:14)
[2019-02-05] MEDS: BUPRENORPHINE/NALOXONE 2 MG/0.5 MG FILM PACKET SL SCH (09:14)
[2019-02-05] MEDS: hydrOXYzine PAMOATE 50 MG CAPSULE (FP) PO PRN ×2 (11:15→22:01)
[2019-02-05] MEDS: NICOTINE POLACRILEX 2 MG GUM BC PRN (13:37)
[2019-02-05] MEDS: MELATONIN 5 MG TABLETS PO PRN (22:02)
[2019-02-05] MEDS: CYCLOBENZAPRINE HCL 10 MG TABLET (FP) PO PRN (22:02)
[2019-02-05] MEDS: THIAMINE HCL 100 MG TABLET (FP) PO SCH (22:03)
[2019-02-05] MEDS ORDERED: COLLOIDAL OATMEAL 1 BAR EACH TP PRN (23:04)
[2019-02-06] MEDS: hydrOXYzine PAMOATE 50 MG CAPSULE (FP) PO PRN ×2 (06:39→15:17)
[2019-02-06] MEDS ORDERED: cloNIDine HCL 0.1 MG TABLET PO ONE (07:15)
--- NOTE | 2019-02-06 09:46 | PN ---
[facility] COWS - Scale Resting Pulse: 1= ID 81-100 Sweatin= Chills/Flushing Restless Observation: 1= Difficult to Sit Still Pupil Size: 1= Pupils >than Normal Bone or Joint Aches: 1= Mild Discomfort Runny Nose/ Eye Tearin= Runny Nose/Eyes GI Upset > 30mins: 1= Stomach Cramp Tremor Observation of Outstretched Hands: 2= Slight Tremor Visible Yawning Observation: 0= None Anxiety or Irritability: 4=Extreme Anxiety Goose Flesh Skin: 0=Smooth Skin COWS Score: 14 [facility] Progress Note (SOAP) Subjective: Patient is highly anxious, states she wakes up irritable. States she feels like "sh_t." She is concerned that she will not be able to leave on feeling able to stay sober. reports stomach cramps, body aches, elevated BP that resolves after taking medication. Objective: SEE [place], Physical General: anxious, HEENTM: Pupils>1mm Lungs: clear Heart: s1 s2 Abd: soft, non-tender, non-distended, +BS Vital Signs (72 hours) 02/03/19 02/04/19 02/04/19 10:55 00:30 03:30 Temperature 98.1 F Pulse Rate 96 H Respiratory 16 16 16 Rate Blood Pressure 143/99 02/04/19 02/05/19 02/05/19 07:22 00:30 03:30 Temperature 97.7 F Pulse Rate 100 H Respiratory 16 16 16 Rate Blood Pressure 143/101 H 02/05/19 02/06/19 02/06/19 06:52 00:30 03:30 Temperature 98.0 F Pulse Rate 93 H Respiratory 18 16 16 Rate Blood Pressure 157/93 02/06/19 07:09 Temperature 98.2 F Pulse Rate 96 H Respiratory 18 Rate Blood Pressure 157/112 H BP now: 127/78, 02/06/19 09:43 02/06/19 09:51 02/06/19 09:56 Assessment: Withdrawal from heroin. 02/06/19 09:44 Plan: Will increase suboxone dose and frequency. patient agreed to plan, will continue to monitor.
[2019-02-06] MEDS ORDERED: BUPRENORPHINE/NALOXONE 2 MG/0.5 MG FILM PACKET SL ONE (09:50)
[2019-02-06] MEDS ORDERED: BUPRENORPHINE/NALOXONE 2 MG/0.5 MG FILM PACKET SL SCH (10:00)
[2019-02-06] MEDS: PRENATAL VITAMINS W/ FOLIC ACID TABLET (FP) PO SCH (10:02)
[2019-02-06] MEDS: DEXTROAMPHETAMINE/AMPHETAMINE 10 MG CAP.ER.24H PO SCH (10:02)
[2019-02-06] MEDS: QUEtiapine FUMARATE 100 MG TABLET (FP) PO SCH ×2 (10:02→21:41)
[2019-02-06] MEDS: CYCLOBENZAPRINE HCL 10 MG TABLET (FP) PO PRN ×2 (10:03→21:40)
[2019-02-06] MEDS: NICOTINE POLACRILEX 2 MG GUM BC PRN ×2 (10:04→21:41)
[2019-02-06] MEDS: BUPRENORPHINE/NALOXONE 2 MG/0.5 MG FILM PACKET SL SCH (18:01)
[2019-02-06] MEDS: THIAMINE HCL 100 MG TABLET (FP) PO SCH (21:41)
[2019-02-07] MEDS: BUPRENORPHINE/NALOXONE 2 MG/0.5 MG FILM PACKET SL SCH ×2 (06:51→18:02)
[2019-02-07 07:21] VITALS: BP 104/73; PULSE 86; TEMP 97.9
[2019-02-07] MEDS: DEXTROAMPHETAMINE/AMPHETAMINE 10 MG CAP.ER.24H PO SCH (09:12)
[2019-02-07] MEDS: PRENATAL VITAMINS W/ FOLIC ACID TABLET (FP) PO SCH (09:13)
[2019-02-07] MEDS: QUEtiapine FUMARATE 100 MG TABLET (FP) PO SCH ×2 (09:13→21:50)
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
--- NOTE | 2019-02-07 13:39 | PN ---
[facility] Progress Note Note: Patieny is scheduled for discharge tomorrow. Script for 30 days supply of Seroquel 100 mg/bid will be electronically transmitted to [facility] at [address] [place], [place] [id number]
[2019-02-07] MEDS: hydrOXYzine PAMOATE 50 MG CAPSULE (FP) PO PRN ×2 (14:03→21:50)
[2019-02-07] MEDS: CYCLOBENZAPRINE HCL 10 MG TABLET (FP) PO PRN ×2 (14:04→21:50)
[2019-02-07] MEDS: NICOTINE POLACRILEX 2 MG GUM BC PRN ×3 (14:05→21:51)
[2019-02-07] MEDS: THIAMINE HCL 100 MG TABLET (FP) PO SCH (21:50)
[2019-02-08] MEDS: BUPRENORPHINE/NALOXONE 2 MG/0.5 MG FILM PACKET SL SCH (06:58)
[2019-02-08] MEDS: QUEtiapine FUMARATE 100 MG TABLET (FP) PO SCH (09:13)
[2019-02-08] MEDS: NICOTINE POLACRILEX 2 MG GUM BC PRN (09:14)
[2019-02-08] MEDS: DEXTROAMPHETAMINE/AMPHETAMINE 10 MG CAP.ER.24H PO SCH (09:14)
[2019-02-08] MEDS: PRENATAL VITAMINS W/ FOLIC ACID TABLET (FP) PO SCH (09:14)
[2019-02-08] MEDS: hydrOXYzine PAMOATE 50 MG CAPSULE (FP) PO PRN (09:15)
== END 2019-02-08 09:17 | disposition home or self-care (01) | DRG 772 ==
LOC: YASAS 14:10 → Y3E 14:12
PROVIDERS: ADMIT Neuromusculoskeletal Medicine & OMM; ATTEND Neuromusculoskeletal Medicine & OMM
PROC: HZ42ZZZ Group Counseling for Substance Abuse Treatment, Cognitive-Behavioral (ICD-10-PCS; principal; 2019-01-29)
DX: F11.23 Opioid dependence with withdrawal (principal); F13.20 Sedative, hypnotic or anxiolytic dependence, uncomplicated; F14.20 Cocaine dependence, uncomplicated; F17.210 Nicotine dependence, cigarettes, uncomplicated; F90.9 Attention-deficit hyperactivity disorder, unspecified type; F43.10 Post-traumatic stress disorder, unspecified; F19.282 Other psychoactive substance dependence with psychoactive substance-induced sleep disorder; R11.2 Nausea with vomiting, unspecified; M79.10 Myalgia, unspecified site; G43.909 Migraine, unspecified, not intractable, without status migrainosus; Z59.0 Homelessness
CPT/HCPCS: 86480; J0735; Q0162

== ENCOUNTER 2021-02-15 08:55 | Inpatient (IN) | payer OTHER ==
[2021-02-15 09:22] VITALS: BMI 22.9
[2021-02-15] MEDS ORDERED: MAGNESIUM CITRATE 300 ML BOTTLE PO PRN (10:46)
[2021-02-15] MEDS ORDERED: cloNIDine HCL 0.1 MG TABLET PO PRN (10:46)
[2021-02-15] MEDS ORDERED: MENTHOL/PHENOL 1 EACH UD MM PRN (10:46)
[2021-02-15] MEDS ORDERED: IBUPROFEN 400 MG TABLET (FP) PO PRN (10:46)
[2021-02-15] MEDS ORDERED: MAG HYDROX/AL HYDROX/SIMETH 30 ML UNIT-DOSE CUP PO PRN (10:46)
[2021-02-15] MEDS ORDERED: ACETAMINOPHEN 325 MG TABLET (FP) PO PRN ×2 (10:46)
[2021-02-15] MEDS ORDERED: MAGNESIUM HYDROX 2400MG/30ML ORAL SUSPENSION 30 ML CUP PO PRN (10:46)
[2021-02-15] MEDS ORDERED: NALOXONE (NARCAN) HCL 4 MG/0.1 ML SPRAY NS PRN (10:46)
[2021-02-15] MEDS ORDERED: NICOTINE 10 MG CARTRIDGE (INHALER) IH PRN (10:46)
[2021-02-15] MEDS ORDERED: BISMUTH SUBSALICYLATE 524 MG/30 ML PO PRN (10:46)
[2021-02-15] MEDS ORDERED: methaDONE HCL 10 MG TABLET (FOR DETOX USE ONLY) PO ONE (11:30)
[2021-02-15] MEDS: METHOCARBAMOL 500 MG TABLET PO PRN ×2 (14:44→22:32)
[2021-02-15] MEDS: THIAMINE HCL 100 MG TABLET (FP) PO SCH (22:32)
[2021-02-15] MEDS: MELATONIN 5 MG TABLETS PO SCH (22:32)
[2021-02-16] MEDS ORDERED: methaDONE HCL 10 MG TABLET (FOR DETOX USE ONLY) ONE (09:38)
[2021-02-16 10:35] LABS: HEMATOCRIT 30.7 % (32.4-45.2); HEMOGLOBIN 10.1 GM/dL (10.7-15.3); MCH 24.6 pg (25.7-33.7); MCHC 32.9 g/dl (32.0-36.0); MEAN CELL VOLUME 74.7 fl (80-96); MEAN PLT VOLUME 7.9 fl (7.5-11.1); PLATELET COUNT 305 10^3/uL (134-434); RBC 4.11 M/mm3 (3.60-5.2); RDW 18.4 % (11.6-15.6); WHITE BLOOD COUNT 4.3 K/mm3 (4.0-10.0)
[2021-02-16] MEDS: PRENATAL VITAMINS W/ FOLIC ACID TABLET (FP) PO SCH (10:41)
[2021-02-16 10:49] LABS: ALBUMIN 2.8 g/dl (3.4-5.0); BLOOD UREA NITROGEN 18.6 mg/dL (7-18); CALCIUM 8.6 mg/dL (8.5-10.1)
[2021-02-16 10:52] LABS: CREATININE 0.7 mg/dL (0.55-1.3)
[2021-02-16 10:53] LABS: BILIRUBIN,TOTAL 0.5 mg/dL (0.2-1)
[2021-02-16 10:54] LABS: TOT PROT 6.5 g/dl (6.4-8.2)
[2021-02-16] MEDS: THIAMINE HCL 100 MG TABLET (FP) PO SCH (23:06)
[2021-02-16] MEDS: MELATONIN 5 MG TABLETS PO SCH (23:06)
[2021-02-17] MEDS ORDERED: methaDONE HCL 10 MG TABLET (FOR DETOX USE ONLY) PO ONE (10:00)
[2021-02-17] MEDS: METHOCARBAMOL 500 MG TABLET PO PRN (10:34)
[2021-02-17] MEDS: PRENATAL VITAMINS W/ FOLIC ACID TABLET (FP) PO SCH (10:34)
[2021-02-17] MEDS ORDERED: PENICILLIN G BENZATHINE 2,400,000 UNIT/4 ML PFS IM ONE (12:30)
[2021-02-17] MEDS ORDERED: diazePAM 5 MG TABLET PO ONE (18:06)
[2021-02-17] MEDS ORDERED: hydrOXYzine PAMOATE 25 MG CAPSULE (FP) PO ONE (19:04)
[2021-02-17] MEDS: NICOTINE POLACRILEX 4 MG GUM BUC PRN (19:08)
[2021-02-17] MEDS: THIAMINE HCL 100 MG TABLET (FP) PO SCH ×2 (22:22→22:39)
[2021-02-17] MEDS: MELATONIN 5 MG TABLETS PO SCH (22:22)
[2021-02-18] MEDS: NICOTINE POLACRILEX 4 MG GUM BUC PRN ×2 (08:56→16:56)
[2021-02-18] MEDS ORDERED: methaDONE HCL 10 MG TABLET (FOR DETOX USE ONLY) ONE (09:12)
[2021-02-18] MEDS: PRENATAL VITAMINS W/ FOLIC ACID TABLET (FP) PO SCH (10:12)
[2021-02-18] MEDS ORDERED: JANSSEN COVID-19 VAC,AD26/PF 0.5 ML IM ONE (11:00)
[2021-02-18] MEDS: METHOCARBAMOL 500 MG TABLET PO PRN (17:21)
[2021-02-18] MEDS: THIAMINE HCL 100 MG TABLET (FP) PO SCH (22:38)
[2021-02-18] MEDS: MELATONIN 5 MG TABLETS PO SCH (22:38)
[2021-02-19] MEDS: METHOCARBAMOL 500 MG TABLET PO PRN ×2 (03:27→10:06)
[2021-02-19] MEDS: NICOTINE POLACRILEX 4 MG GUM BUC PRN (09:07)
[2021-02-19 09:27] VITALS: BP 100/58; PULSE 89; TEMP 97.8
[2021-02-19] MEDS ORDERED: methaDONE HCL 10 MG TABLET (FOR DETOX USE ONLY) PO ONE (10:00)
[2021-02-19] MEDS: PRENATAL VITAMINS W/ FOLIC ACID TABLET (FP) PO SCH (10:04)
[2021-02-24] MEDS ORDERED: PENICILLIN G BENZATHINE 2,400,000 UNIT/4 ML PFS IM ONE (10:00)
== END 2021-02-19 11:53 | disposition home or self-care (01) | DRG 773 ==
LOC: YASAS 08:55 → Y6N 13:14
PROVIDERS: ADMIT Allergy & Immunology; ATTEND Allergy & Immunology
PROC: HZ2ZZZZ Detoxification Services for Substance Abuse Treatment (ICD-10-PCS; principal; 2021-02-15)
DX: F11.23 Opioid dependence with withdrawal (principal); F14.20 Cocaine dependence, uncomplicated; F12.20 Cannabis dependence, uncomplicated; F17.210 Nicotine dependence, cigarettes, uncomplicated; I10 Essential (primary) hypertension; A53.9 Syphilis, unspecified; B18.2 Chronic viral hepatitis C; Z59.00 Homelessness unspecified
CPT/HCPCS: 0031A; 36415; 80053; 81025; 85027; 86593; 86780; 91303; 93005; 93010; C9803; J0735; U0003; U0005

== ENCOUNTER 2022-07-15 13:25 | Inpatient (IN) | payer OTHER ==
[2022-07-15 14:16] VITALS: BMI 22.6
[2022-07-15] MEDS ORDERED: BISMUTH SUBSALICYLATE 262 MG/15 ML BTL PO PRN (15:08)
[2022-07-15] MEDS ORDERED: POLYETHYLENE GLYCOL (HEALTHYLAX) 3350 17 GM PACKET PO PRN (15:08)
[2022-07-15] MEDS ORDERED: DICYCLOMINE HCL 10 MG CAPSULE PO PRN (15:08)
[2022-07-15] MEDS ORDERED: BUPRENORPHINE HCL 150 MCG, BUPRENORPHINE HCL 75 MCG BC PRN (15:08)
[2022-07-15] MEDS ORDERED: cloNIDine HCL 0.1 MG TABLET PO ONE (15:08)
[2022-07-15] MEDS ORDERED: MAGNESIUM HYDROX 2400MG/30ML ORAL SUSPENSION 30 ML CUP PO PRN (15:08)
[2022-07-15] MEDS ORDERED: NICOTINE 10 MG CARTRIDGE (INHALER) IH PRN (15:08)
[2022-07-15] MEDS ORDERED: hydrOXYzine PAMOATE 25 MG CAPSULE (FP) PO PRN (15:08)
[2022-07-15] MEDS ORDERED: ONDANSETRON *ODT* 4 MG TABLET SL PRN (15:08)
[2022-07-15] MEDS ORDERED: LOPERAMIDE HCL 2 MG CAPSULE PO PRN (15:08)
[2022-07-15] MEDS ORDERED: NALOXONE HCL (KLOXXADO) 8 MG SPRAY NS PRN (15:08)
[2022-07-15] MEDS ORDERED: METHOCARBAMOL 500 MG TABLET PO PRN (15:08)
[2022-07-15] MEDS ORDERED: IBUPROFEN 600 MG TABLET (FP) PO PRN (15:08)
[2022-07-15] MEDS ORDERED: IBUPROFEN 400 MG TABLET (FP) PO PRN (15:08)
[2022-07-15] MEDS ORDERED: ACETAMINOPHEN 325 MG TABLET (FP) PO PRN ×2 (15:08)
[2022-07-15] MEDS ORDERED: BENZOCAINE/MENTHOL (CHLORASEPTIC ) LOZENGE MM PRN (15:08)
[2022-07-15] MEDS ORDERED: MAG HYDROX/AL HYDROX/SIMETH 30 ML UNIT-DOSE CUP PO PRN (15:08)
[2022-07-15] MEDS: BUPRENORPHINE HCL 150 MCG, BUPRENORPHINE HCL 75 MCG BC ONE ×2 (16:01→16:30)
[2022-07-15] MEDS: PRENATAL VITAMINS W/ FOLIC ACID TABLET (FP) PO SCH (16:02)
[2022-07-15] MEDS ORDERED: cloNIDine HCL 0.1 MG TABLET ONE (16:20)
[2022-07-15] MEDS ORDERED: BUPRENORPHINE HCL 150 MCG FILM BC ONE (16:20)
[2022-07-15] MEDS ORDERED: PRENATAL VITAMINS W/ FOLIC ACID TABLET (FP) PO ONE (16:21)
[2022-07-15] MEDS ORDERED: BUPRENORPHINE HCL 75 MCG FILM BC ONE (16:21)
[2022-07-15] MEDS ORDERED: BUPRENORPHINE HCL 150 MCG, BUPRENORPHINE HCL 75 MCG BC ONE (18:15)
[2022-07-15] MEDS: NICOTINE POLACRILEX 4 MG GUM BUC PRN (18:54)
[2022-07-15] MEDS ORDERED: cloNIDine HCL 0.1 MG TABLET PO PRN (19:08)
[2022-07-15] MEDS: MELATONIN 5 MG TABLETS PO SCH (22:18)
[2022-07-15] MEDS: THIAMINE HCL 100 MG TABLET (FP) PO SCH (22:18)
[2022-07-16] MEDS ORDERED: BUPRENORPHINE HCL 150 MCG, BUPRENORPHINE HCL 75 MCG BC PRN
[2022-07-16] MEDS: BUPRENORPHINE HCL 150 MCG, BUPRENORPHINE HCL 75 MCG BC SCH ×2 (06:26→17:05)
[2022-07-16] MEDS: PRENATAL VITAMINS W/ FOLIC ACID TABLET (FP) PO SCH (10:29)
[2022-07-16] MEDS: diazePAM 5 MG TABLET PO PRN ×2 (10:30→22:29)
[2022-07-16] MEDS: NICOTINE POLACRILEX 4 MG GUM BUC PRN ×2 (10:34→20:44)
[2022-07-16 11:12] LABS: HEMATOCRIT 35.6 % (32.4-45.2); HEMOGLOBIN 11.9 GM/dL (10.7-15.3); MCH 28.4 pg (25.7-33.7); MCHC 33.3 g/dl (32.0-36.0); MEAN CELL VOLUME 85.2 fl (80-96); PLATELET COUNT 175 10^3/uL (134-434); RBC 4.18 M/mm3 (3.60-5.2); RDW 14.3 % (11.6-15.6); WHITE BLOOD COUNT 3.8 K/mm3 (4.0-10.0)
[2022-07-16 11:20] LABS: BLOOD UREA NITROGEN 17.9 mg/dL (7-18)
[2022-07-16 11:22] LABS: ALBUMIN 2.7 g/dl (3.4-5.0); CALCIUM 7.7 mg/dL (8.5-10.1)
[2022-07-16 11:23] LABS: CREATININE 0.5 mg/dL (0.55-1.3)
[2022-07-16 11:24] LABS: BILIRUBIN,TOTAL 0.4 mg/dL (0.2-1); TOT PROT 5.6 g/dl (6.4-8.2)
[2022-07-16] MEDS: THIAMINE HCL 100 MG TABLET (FP) PO SCH (22:27)
[2022-07-16] MEDS: MELATONIN 5 MG TABLETS PO SCH (22:27)
[2022-07-17] MEDS ORDERED: BUPRENORPHINE HCL 450 MCG FILM BC SCH (06:00)
[2022-07-17] MEDS: diazePAM 5 MG TABLET PO PRN (08:56)
[2022-07-17] MEDS: NICOTINE POLACRILEX 4 MG GUM BUC PRN (08:58)
[2022-07-17] MEDS: PRENATAL VITAMINS W/ FOLIC ACID TABLET (FP) PO SCH (09:04)
[2022-07-17 09:28] VITALS: BP 147/105; PULSE 95; RESP 16; TEMP 98.1
[2022-07-18] MEDS ORDERED: BUPRENORPHINE/NALOXONE 4 MG/1 MG FILM PACKET SL SCH (06:00)
[2022-07-19] MEDS ORDERED: BUPRENORPHINE/NALOXONE 8 MG/2 MG FILM PACKET SL ONE (06:00)
== END 2022-07-17 10:30 | disposition left against medical advice (07) | DRG 770 ==
LOC: YASAS 13:25 → Y6N 16:06
PROVIDERS: ADMIT Allergy & Immunology; ATTEND Surgery
PROC: HZ2ZZZZ Detoxification Services for Substance Abuse Treatment (ICD-10-PCS; principal; 2022-07-15)
DX: F11.23 Opioid dependence with withdrawal (principal); F14.20 Cocaine dependence, uncomplicated; F17.210 Nicotine dependence, cigarettes, uncomplicated; F31.9 Bipolar disorder, unspecified; F41.9 Anxiety disorder, unspecified; F90.9 Attention-deficit hyperactivity disorder, unspecified type; I10 Essential (primary) hypertension; B18.2 Chronic viral hepatitis C; Z86.19 Personal history of other infectious and parasitic diseases
CPT/HCPCS: 36415; 80053; 81025; 85027; 86593; 86780; 87811; 93005; 93010; C9803-CS; U0003; U0005